=== PATIENT | male | born 1975 | race Caucasian/White ===

== ENCOUNTER 2020-01-01 20:40 | Emergency (ER) | payer BC ==
[2020-01-01 20:44] VITALS: RESP 20; TEMP 97.9
[2020-01-01] MEDS ORDERED: SODIUM CHLORIDE 0.9% 1,000 ML IV STA (21:22)
[2020-01-01] MEDS ORDERED: KETOROLAC 30 MG/ML 1 ML VIAL IVP STA (21:22)
[2020-01-01] MEDS ORDERED: ONDANSETRON 4 MG/2 ML VIAL IVP STA (21:22)
--- NOTE | 2020-01-01 21:24 | ED ---
Abdominal Pain HPI - General Chief Complaint: Abdominal Pain Stated Complaint: right side abd pain Time Seen by Provider: 01/01/20 20:56 Source: patient Mode of arrival: ambulatory Limitations: no limitations - History of Present Illness Initial Comments: Patient is a 44-year-old male with history of kidney stones presenting to the emergency room with a chief complaint of abdominal pain. The pain started about 4 hours prior to arrival. Patient states this one feels somewhat like a previous kidney stone. States pain is located in the right groin region and is constant and sharp in nature. Does report nausea but denies any vomiting or diarrhea. Denies any abdominal bloating denies any constipation and he is able to pass gas. Denies any night sweats fever or chills. Denies previous history of abdominal surgeries. Denies taking any medications alleviate the symptoms. Denies testicular pain or swelling. Denies penile discharge or pain. - Related Data Previous Rx's Medication Instructions Recorded Hydrocodone/Acetaminophen [[place] 1 each PO Q6HR PRN #20 tab 06/05/16 5-325] Ketorolac [Toradol] 10 mg PO Q6HR #20 tab 06/05/16 Ondansetron Odt [Zofran ODT] 4 mg PO Q8HR PRN #20 tab 06/05/16 Tamsulosin HCl [Flomax] 0.4 mg PO DAILY #10 cap 06/05/16 HYDROcodone/APAP 10-325MG [[place] 1 tab PO Q6HR PRN 3 Days #12 tab 01/01/20 10-325] Tamsulosin [Flomax] 0.4 mg PO DAILY #7 cap 01/01/20 Allergies Allergy/AdvReac Type Severity Reaction Status Date / Time Penicillins Allergy Rash/Hives Verified 01/01/20 20:44 Review of Systems ROS Statement: Those systems with pertinent positive or pertinent negative responses have been documented in the HPI. ROS Other: All systems not noted in ROS Statement are negative. Past Medical History Past Medical History: No Reported History Additional Past Medical History / Comment(s): Kidney stones History of Any Multi-Drug Resistant Organisms: None Reported Past Surgical History: No Surgical Hx Reported Past Psychological History: No Psychological Hx Reported Smoking Status: Never smoker Past Alcohol Use History: Occasional Past Drug Use History: None Reported General Exam Limitations: no limitations General appearance: alert, in no apparent distress, obese Head exam: Present: atraumatic, normocephalic, normal inspection Eye exam: Present: normal appearance Pupils: Present: normal accommodation ENT exam: Present: normal exam Neck exam: Present: normal inspection, full ROM Respiratory exam: Present: normal lung sounds bilaterally Cardiovascular Exam: Present: regular rate, normal rhythm, normal heart sounds GI/Abdominal exam: Present: soft, tenderness (Right lower quadrant. Negative McBurney point tenderness. Negative Rovsing, negative obturator, negative psoas.). Absent: distended, guarding, rebound, rigid, bruit, pulsatile mass, hernia exam: Present: normal inspection. Absent: testicular tenderness, scrotal swelling Extremities exam: Present: normal inspection, full ROM Back exam: Present: normal inspection, full ROM. Absent: CVA tenderness (R), CVA tenderness (L) Neurological exam: Present: alert, oriented X3 Psychiatric exam: Present: normal affect, normal mood Skin exam: Present: warm, dry, intact, normal color Course Vital Signs 01/01/20 20:42 Temperature 97.9 F Pulse Rate 71 Respiratory 20 Rate Blood Pressure 165/97 O2 Sat by Pulse 99 Oximetry Medical Decision Making - Medical Decision Making Patient is a 44-year-old male with history of kidney stones presenting to the emergency room with a chief complaint of abdominal pain. Sudden onset of right groin abdominal pain that is sharp in nature and constant. On exam patient has no signs of appendicitis. Patient given IV fluids, analgesia and antiemetics. CBC CMP are unremarkable. UA does show large amounts of blood. Patient has no CVA tenderness so not suspecting any hydronephrosis at this time. Patient given Flomax in the ED and will be discharged with a seven-day course of Flomax. Patient will also be given less than 3 days of [place]. Patient was to follow-up with a urologist. Return parameters thoroughly discussed with patient was understanding and agreeable. Case discussed with physician. - Lab Data Result diagrams: 01/01/20 21:35 01/01/20 21:35 Lab Results 01/01/20 01/01/20 01/01/20 Range/Units 21:35 21:35 21:35 WBC 12.6 H (3.8-10.6) k/uL RBC 5.22 (4.30-5.90) m/uL Hgb 16.1 (13.0-17.5) gm/dL Hct 48.0 (39.0-53.0) % MCV 91.9 (80.0-100.0) fL MCH 30.9 (25.0-35.0) pg MCHC 33.6 (31.0-37.0) g/dL RDW 12.1 (11.5-15.5) % Plt Count 293 (150-450) k/uL Neutrophils % 76 % Lymphocytes % 15 % Monocytes % 5 % Eosinophils % 2 % Basophils % 1 % Neutrophils # 9.6 H (1.3-7.7) k/uL Lymphocytes # 1.8 (1.0-4.8) k/uL Monocytes # 0.6 (0-1.0) k/uL Eosinophils # 0.2 (0-0.7) k/uL Basophils # 0.1 (0-0.2) k/uL Sodium 139 (137-145) mmol/L Potassium 4.3 (3.5-5.1) mmol/L Chloride 101 (98-107) mmol/L Carbon Dioxide 28 (22-30) mmol/L Anion Gap 10 mmol/L BUN 22 H (9-20) mg/dL Creatinine 0.98 (0.66-1.25) mg/dL Est GFR (CKD-EPI)AfAm >90 (>60 ml/min/1.73 sqM) Est GFR (CKD-EPI)NonAf >90 (>60 ml/min/1.73 sqM) Glucose 104 H (74-99) mg/dL Calcium 9.5 (8.4-10.2) mg/dL Total Bilirubin 0.5 (0.2-1.3) mg/dL AST 49 (17-59) U/L ALT 87 H (4-49) U/L Alkaline Phosphatase 84 (38-126) U/L Total Protein 7.6 (6.3-8.2) g/dL Albumin 4.7 (3.5-5.0) g/dL Urine Color Light Red Urine Appearance Cloudy (Clear) Urine pH 5.5 (5.0-8.0) Ur Specific [place] 1.027 (1.001-1.035) Urine Protein 1+ H (Negative) Urine Glucose (UA) Negative (Negative) Urine Ketones Negative (Negative) Urine Blood Large H (Negative) Urine Nitrite Negative (Negative) Urine Bilirubin Negative (Negative) Urine Urobilinogen <2.0 (<2.0) mg/dL Ur Leukocyte Esterase Negative (Negative) Urine RBC >182 H (0-5) /hpf Urine WBC 1 (0-5) /hpf Urine Bacteria Rare H (None) /hpf Urine Mucus Few H (None) /hpf Urine Yeast (Budding) Few H (None) /hpf Disposition Clinical Impression: Abdominal pain, Kidney stones, Hematuria Disposition: HOME SELF-CARE Condition: Stable Instructions (If sedation given, give patient instructions): Kidney Stones (ED) Additional Instructions: He was prescribed medication as directed. Follow-up with urologist. Return to emergency department if symptoms worsen. Prescriptions: Tamsulosin [Flomax] 0.4 mg PO DAILY #7 cap HYDROcodone/APAP 10-325MG [[place] 10-325] 1 tab PO Q6HR PRN 3 Days #12 tab PRN Reason: Pain Is patient prescribed a controlled substance at d/c from ED?: No Referrals: Herbie Cline MD [Primary Care Provider] - 1-2 days Time of Disposition: 23:03
[2020-01-01 22:07] LABS: Basophils # (A) 0.1 k/uL (0-0.2); Basophils % (A) 1 %; Eosinophils # (A) 0.2 k/uL (0-0.7); Eosinophils % (A) 2 %; HGB 16.1 gm/dL (13.0-17.5); Lymphocytes # (A) 1.8 k/uL (1.0-4.8); Lymphocytes % (A) 15 %; MCH 30.9 pg (25.0-35.0); MCHC 33.6 g/dL (31.0-37.0); MCV 91.9 fL (80.0-100.0); Mean Platelet Volume 6.8; Monocytes # (A) 0.6 k/uL (0-1.0); Monocytes % (A) 5 %; Neutrophils # (A) 9.6 k/uL (1.3-7.7); Neutrophils % (A) 76 %; Platelet Count 293 k/uL (150-450); RBC 5.22 m/uL (4.30-5.90); RDW 12.1 % (11.5-15.5); WBC 12.6 k/uL (3.8-10.6)
[2020-01-01 22:12] LABS: ALT 87 U/L (4-49); AST 49 U/L (17-59); African American GFR (CKD) >90 (>60 ml/min/1.73 sqM); Albumin 4.7 g/dL (3.5-5.0); Alkaline Phosphatase 84 U/L (38-126); Anion Gap 10 mmol/L; Blood Urea Nitrogen 22 mg/dL (9-20); Calcium 9.5 mg/dL (8.4-10.2); Carbon Dioxide 28 mmol/L (22-30); Chloride 101 mmol/L (98-107); Glucose 104 mg/dL (74-99); Non-African American GFR(CKD) >90 (>60 ml/min/1.73 sqM); Potassium 4.3 mmol/L (3.5-5.1); Sodium 139 mmol/L (137-145); Total Bilirubin 0.5 mg/dL (0.2-1.3); Total Protein 7.6 g/dL (6.3-8.2)
[2020-01-01 22:19] LABS: Appearance,Urine Cloudy (Clear); Bacteria,Urine Rare /hpf; Bilirubin,Urine Negative (Negative); Blood,Urine Large (Negative); Budding Yeast,Urine Few /hpf; Color,Urine Light Red; Glucose,Urine (UA) Negative (Negative); Ketones,Urine Negative (Negative); Leukocyte Esterase,Urine Negative (Negative); Mucus,Urine Few /hpf; Nitrite,Urine Negative (Negative); PH, Urine 5.5 (5.0-8.0); Protein,Urine 1+ (Negative); RBC,Urine >182 /hpf (0-5); Specific Gravity,Urine 1.027 (1.001-1.035); Urobilinogen,Urine <2.0 mg/dL (<2.0); WBC,Urine 1 /hpf (0-5)
[2020-01-01] MEDS ORDERED: TAMSULOSIN 0.4 MG CAP.ER.24H PO STA (22:38)
[2020-01-01 23:19] VITALS: BP 158/87; PULSE 75
== END 2020-01-01 23:22 | disposition home or self-care (01) ==
LOC: EC 20:40
DX: N20.0 Calculus of kidney (principal); Z88.0 Allergy status to penicillin
CPT/HCPCS: 99284; 96374; 96375; 96361; 36415; 80053; 85025; 81001; J2405; J1885

== ENCOUNTER → 2023-06-30 | Outpatient (CLI) | payer BC ==
--- NOTE | 2023-06-30 12:32 | P.SLEEP ---
History of Present Illness DATE: 06/30/2023 CONSULTATION/NEW PATIENT EVALUATION HISTORY OF PRESENT ILLNESS/SLEEP-WAKE EVALUATION: 47 year old gentleman had been evaluated in the sleep center for obstructive sleep apnea hypopnea syndrome. Patient was diagnosed with severe obstructive sleep apnea hypopnea syndrome in our institution in 2008. Since that time patient is on treatment with CPAP and he continued to use CPAP equipment every night for the whole night. Patient increased his weight on around 71 pounds since previous sleep study in 2008. I checked CPAP unit. Motor life expectancy was exceeded. CPAP pressure is 8 cm of water. CPAP unit does not has options for AutoPap. Usage is 100% of nights and about 70% of nights more than 4 hours, average 5.3 hours per night. Leak is 28 L/m which is slightly high. Apnea-hypopnea index is significantly increased to 20.1. SLEEP SCHEDULE: Usually sleep schedule from 10 PM to 5 AM on weekdays and from 11 PM to 7 AM on weekend. FALLING ASLEEP: Sometimes patient has difficulties with falling asleep, has TV set and bedroom. DURING SLEEP: Patient usually sleeps on the side position, has snoring and wakes up from sleep up to 3 times with 2 episodes of nocturia. No history of hypnogogical hallucinations, sleep paralysis, or cataplexy. DURING THE DAY/WAKE STATE: In the morning patient wake up tired. [place] sleepiness scale is 8. Usually patient doesn't take naps. PAST MEDICAL HISTORY: Hypertension, prediabetes, history of depression the past. PAST SURGICAL HISTORY: [place] tooth removed. MEDICATIONS: Lisinopril 20 mg once a day, metformin 500 mg 2 tablets twice a day. SOCIAL HISTORY: Negative for smoking, alcohol consumption occasional. FAMILY HISTORY: Heart problems, during the sleep. REVIEW OF SYSTEMS: Snoring, multiple awakenings from sleep. No fevers. No double vision. No recent chest pain. No shortness of breath. No abdominal pain. No bleeding episodes. No blood in urine. No seizure episodes. PHYSICAL EXAMINATION: GENERAL: A pleasant patient without any distress. VITAL SIGNS: BP 132/90 , HR 100 , RR 16 , weight 301 pounds, height 5 foot 11 inches, body mass index 41.8 . HEENT: PERRLA, EOMI. Evaluation of oropharynx showed tongue protrudes midline, low position of soft palate Mallampati 4. NECK: Supple. No JVD. Thyroid is not palpable. 20.5 inches in circumference. LUNGS: Clear to percussion and to auscultation. Good air exchange. No wheezing or rhonchi. HEART: S1, S2 regular. No murmurs, gallops or rubs. ABDOMEN: Soft and nontender. Bowel sounds are present. No organomegaly appreciated. EXTREMITIES: No clubbing or cyanosis. HAT PARTS CUTTER MACHINE: Awake, alert, and oriented x3. Cranial nerves 2 to 7 intact. There is no fasciculation or atrophy noted. No focal deficits observed. ASSESSMENT: 1. History of obstructive sleep apnea hypopnea syndrome diagnosed in our institution in 2008 at that time apnea-hypopnea index 31.3. Patient increased weight on around 71 pounds since that time. He continued to use CPAP equipment but reading from CPAP unit showed high apnea hypopnea index 20.1. CPAP unit is old, doesn't have options for AutoPap. Extremely wide neck 20.5 inches, extremely low position of soft palate Mallampati 4. 2. Obesity BMI 41.8. 3. Hypertension. 4. PreDiabetes mellitus. 5 history of depression in the past. PLAN: 1. Home sleep apnea test for evaluation of patient's breathing during sleep at the present time. 2. I increased pressure in CPAP unit to 12 cm of water. 3. Preferable position during sleep on the side. 4. No driving if patient feels any sleepiness. Patient is aware of civil and criminal liability for unsafe driving. 5. Sleep hygiene with regular sleep time for at least 7.5-8 hours. 6. Watching and aggressive losing weight. Thank you very much for referring this patient for consultation. Sincerely, Palmer Pisano MD, PhD, FAASM. Diplomat of [place] [employer], Sleep Medicine Board by [place] [employer] Retail Sales Merchandiser of [facility] [place] Past Medical History Past Medical History: No Reported History Additional Past Medical History / Comment(s): Kidney stones History of Any Multi-Drug Resistant Organisms: None Reported Past Surgical History: No Surgical Hx Reported Past Psychological History: No Psychological Hx Reported Past Alcohol Use History: Occasional Past Drug Use History: None Reported Medications and Allergies Home Medications Medication Instructions Recorded Confirmed Type Hydrocodone/Acetaminophen [[place] 1 each PO Q6HR PRN #20 tab 06/05/16 Rx 5-325] Ketorolac [Toradol] 10 mg PO Q6HR #20 tab 06/05/16 Rx Ondansetron Odt [Zofran ODT] 4 mg PO Q8HR PRN #20 tab 06/05/16 Rx Tamsulosin HCl [Flomax] 0.4 mg PO DAILY #10 cap 06/05/16 Rx HYDROcodone/APAP 10-325MG [[place] 1 tab PO Q6HR PRN 3 Days #12 tab 01/01/20 Rx 10-325] Tamsulosin [Flomax] 0.4 mg PO DAILY #7 cap 01/01/20 Rx Allergies Allergy/AdvReac Type Severity Reaction Status Date / Time Penicillins Allergy Rash/Hives Verified 01/01/20 20:44 Sleep Note - Sleep Note Sleep Note: Temperature: Pulse Rate: Respiratory Rate: Blood Pressure: SpO2: Height: Weight: BMI: Neck Circumference:
== END ==
LOC: 3 N SLEEP 11:37
PROVIDERS: ATTEND Internal Medicine
DX: G47.33 Obstructive sleep apnea (adult) (pediatric) (principal); I10 Essential (primary) hypertension; E66.9 Obesity, unspecified; R73.03 Prediabetes; F32.A Depression, unspecified; Z68.41 Body mass index [BMI] 40.0-44.9, adult; Z99.89 Dependence on other enabling machines and devices; Z88.0 Allergy status to penicillin
CPT/HCPCS: 99202

== ENCOUNTER → 2023-07-23 | Outpatient (CLI) | payer BC ==
--- NOTE | 2023-07-26 17:01 | P.PCN ---
Description of Procedure: CLINICAL: A home sleep apnea test has been done for confirmation of possible obstructive sleep apnea-hypopnea syndrome. DESCRIPTION OF PROCEDURE: RESULTS: Recording time was 8 hours 49 minutes. Evaluation time was 8 hours 39 minutes. Evaluation time is sufficient for making conclusion about results of the test. Raw data of sleep recording has been reviewed and is adequate. Respiratory channel showed 745 apneas and 56 hypopneas. Apnea-hypopnea index was and 90.7 per hour, which included obstructive apnea index 79.4, central apnea index 2.4, mixed apnea index 2.6. Pulse rate in the range between minimum 75, maximum 114, average 88 by computer calculation. Lowest desaturation was 65 %. IMPRESSION: 1. Extremely Severe Obstructive Sleep Apnea Hypopnea Syndrome with severe oxygen distortion. Please see other impressions from consultation. PLAN: 1. The patient should have PAP titration for correction of respiratory abn ormallities during sleep. 2. I will see patient for follow up visit to discuss results of the test, evaluate clinical response on treatment with PAP therapy and make any necessary adjustments related to mask fitting, pressure, and humidification. 3. Watching and aggressive losing weight. 4. Sleep hygiene with regular time in bed for at least 8 hours. 5. No driving if feeling any sleepiness. Thank you very much for allowing me to participate in the management of your patient. Sincerely, Palmer Pisano MD, PhD, FAASM Diplomat of [place] [employer] Sleep Medicine Board of [place] [employer] Medicine Courier Delivery Driver of [facility] [place]
== END ==
LOC: 3 N SLEEP 10:57
PROVIDERS: ATTEND Internal Medicine
DX: G47.33 Obstructive sleep apnea (adult) (pediatric) (principal); Z88.0 Allergy status to penicillin

== ENCOUNTER 2023-09-09 19:32 | Outpatient (CLI) | payer BC | END 2023-09-10 05:50 | disposition home or self-care (01) | LOC: 3 N SLEEP 19:32 | PROVIDERS: ATTEND Internal Medicine | DX: G47.33 Obstructive sleep apnea (adult) (pediatric) (principal); Z88.0 Allergy status to penicillin | CPT/HCPCS: 95811 ==

== ENCOUNTER → 2023-12-13 | Outpatient (CLI) | payer BC ==
--- NOTE | 2023-12-13 16:34 | P.PN ---
Subjective DATE: 12/13/2023 FOLLOW UP VISIT. Patient with obstructive sleep apnea hypopnea syndrome return to sleep center for follow-up visit. Recently patient had sleep study which documented obstructive sleep apnea hypopnea syndrome. Patient received new BiPAP unit and today is first visit after patient started to use that equipment. Patient was able to use BPAP equipment every night for the whole night. The patient does not have significant problems with the mask, PAP pressure and humidification. [place] sleepiness scale is 5. I checked information from BPAP unit. PAP unit pressure maximal inspiratory pressure 21, minimal expiratory pressure 10, pressure-support 3 cm H2O. Usage is 100% and 97 % for more then 4 hours, average 6.8 hours per night. Leak is 14.6 l/m, which is in acceptable range. Apnea Hypopnea Index is 2.0, which is normal. MEDICATIONS:1. Lisinopril 20 mg once a day, 2. metformin 500 mg 2 tablets twice a da During physical exam: GENERAL: A pleasant patient without any distress. VITAL SIGNS: BP 136/87, HR 84, RR 16 , weight 303, temperature 98.2, oxygen saturation at room air 97% . HEENT: PERRLA, EOMI.low position of soft palate, Mallapati 4 . NECK: Supple. No JVD. LUNGS: Clear to percussion and to auscultation. Good air exchange. No wheezing or rhonchi. HEART: S1, S2 regular. ABDOMEN: Soft and nontender. Obese EXTREMITIES: No clubbing or cyanosis. TEACHER AIDE: Awake, alert, and oriented x3. No focal deficit. Impressions: 1. Obstructive sleep apnea-hypopnea syndrome in severe range. Apnea hypopnea index by results of home sleep apnea test is 90.7. Patient demonstrated great compliance with treatment, benefiting from treatment, normal respiration on BiPAP. 2. Obesity. 3. Hypertension. 4. PreDiabetes mellitus. 5. History of depression in the past. Plan: 1. Continue using PAP equipment every night for the whole night. 2. To change air filter at least 1-2 times per month. 3. PAP unit should stay lower then position of the head. 4. Advised patient to remove all remaining water from humidifier canister daily and make it dry after each usage. Refill canister with fresh distilled water before each usage. 5. Sleep hygiene with regular time in bed for at least 8 hours. 6. Precautions related to driving. No driving if feel any sleepiness. 7. I will maintain prescription for PAP supplies including mask, tube, filters. 8. Follow up visit in 6 months or earlier if patient has any problems. 9. Watching and losing weight. Thank you very much for allowing me to participate in the management of your patient. Palmer Pisano MD, PhD, FAASM. Diplomat of [place] [employer], Sleep Medicine Board by [place] Green Building Energy Engineer of [facility] [place]
== END ==
LOC: 3 N SLEEP 16:06
PROVIDERS: ATTEND Internal Medicine
DX: G47.33 Obstructive sleep apnea (adult) (pediatric) (principal); E66.9 Obesity, unspecified; I10 Essential (primary) hypertension; R73.03 Prediabetes; F32.A Depression, unspecified; Z79.899 Other long term (current) drug therapy; Z99.89 Dependence on other enabling machines and devices; Z79.84 Long term (current) use of oral hypoglycemic drugs; Z88.0 Allergy status to penicillin
CPT/HCPCS: 99212

== ENCOUNTER → 2024-07-13 | Outpatient (CLI) | payer BC ==
[2024-07-13 17:16] VITALS: BP 136/76; PULSE 69; RESP 16; TEMP 98.6
--- NOTE | 2024-07-13 17:33 | P.PROGSL ---
Subjective DATE: 07/13/2024 FOLLOW UP VISIT. Patient with obstructive sleep apnea hypopnea syndrome return to sleep center for follow-up visit. Information from previous visit have been reviewed. Patient is using BPAP equipment every night for the whole night, getting PAP supplies in time. The patient does not have significant problems with the mask, PAP unit and humidification. [place] sleepiness scale is 4. I checked information from PAP unit. BPAP unit pressure maximal inspiratory pressure 21, minimal expiratory pressure 10, average pressure 15.8/12.8 cm H2O. Usage is 100% for more then 4 hours, average 7.3 hours per night. Leak is 12 l/m, which is in acceptable range. Apnea Hypopnea Index is 1.5, which is normal. MEDICATIONS have been reviewed, please see below. During physical exam: GENERAL: A pleasant patient without any distress. VITAL SIGNS: Please see below, weight is 293 lbs. HEENT: PERRLA, EOMI.low position of soft palate, Mallapati 4 . NECK: Supple. No JVD. LUNGS: Clear to percussion and to auscultation. Good air exchange. No wheezing or rhonchi. HEART: S1, S2 regular. ABDOMEN: Soft and nontender. Obese EXTREMITIES: No clubbing or cyanosis. HOSPITAL PLAN ADMINISTRATOR: Awake, alert, and oriented x3. No focal deficit. Impressions: 1. Obstructive sleep apnea-hypopnea syndrome. Patient demonstrated great compliance with treatment, benefiting from treatment. 2. Obesity, BMI 40.8, patient lost 10 pounds comparing with previous visit. 3. Hypertension. 4.. Diabetes mellitus. 5. History of depression. Plan: 1. Continue using BPAP equipment every night for the whole night. 2. Sleep hygiene with regular time in bed for at least 7.5-8 hours 3. PAP unit should stay lower then position of the head. 4. Advised patient to remove all remaining water from humidifier canister daily and make it dry after each usage. Refill canister with fresh distilled water before each usage. 5. Watching and losing weight. 6. Precautions related to driving. No driving if feel any sleepiness. 7. I will maintain prescription for PAP supplies including mask, tube, filters. 8. Follow up visit in 6 months or earlier if patient has any problems. Thank you very much for allowing me to participate in the management of your patient. Palmer Psiano MD, PhD, FAASM. Diplomat of [place] [employer] Medicine, Sleep Medicine Board by [place] [employer] Medicine Geophysical Observer of [facility] [place] Objective - Vital Signs Vital Signs: Vital Signs Temp 98.6 F 07/13/24 17:16 Pulse 69 07/13/24 17:16 Resp 16 07/13/24 17:16 BP 136/76 07/13/24 17:16 Pulse Ox 97 07/13/24 17:16 FiO2 Home Medications: Home Medications Medication Instructions Recorded Confirmed Type Hydrocodone/Acetaminophen [[place] 1 each PO Q6HR PRN #20 tab 06/05/16 Rx 5-325] Ketorolac [Toradol] 10 mg PO Q6HR #20 tab 06/05/16 Rx Ondansetron Odt [Zofran ODT] 4 mg PO Q8HR PRN #20 tab 06/05/16 Rx Tamsulosin HCl [Flomax] 0.4 mg PO DAILY #10 cap 06/05/16 Rx HYDROcodone/APAP 10-325MG [[place] 1 tab PO Q6HR PRN 3 Days #12 tab 01/01/20 Rx 10-325] Tamsulosin [Flomax] 0.4 mg PO DAILY #7 cap 01/01/20 Rx
== END ==
LOC: 3 N SLEEP 16:47
PROVIDERS: ATTEND Internal Medicine
CPT/HCPCS: 99212

== ENCOUNTER → 2025-03-21 | Outpatient (CLI) | payer BC ==
[2025-03-21 16:46] VITALS: BP 120/78; PULSE 85; RESP 16; TEMP 98.2
--- NOTE | 2025-03-21 17:00 | P.PROGSL ---
Subjective DATE: 03/21/2025 FOLLOW UP VISIT. Patient with obstructive sleep apnea hypopnea syndrome return to sleep center for follow-up visit. Information from previous visit have been reviewed. Patient is using PAP equipment every night for the whole night, getting PAP supplies in time. The patient does not have significant problems with the mask, PAP unit and humidification. [place] sleepiness scale is 4, which is normal. I checked information from PAP unit. PAP unit pressure normal inspiratory pressure 21, minimal expiratory pressure 10, pressure support 3, average pressure 15.3/12.3 cm H2O. Usage is 100% for more then 4 hours, average 7.4 hours per night. Leak is 13 l/m, which is in acceptable range. Apnea Hypopnea Index is 1.2, which is normal. MEDICATIONS have been reviewed, please see below. During physical exam: GENERAL: A pleasant patient without any distress. VITAL SIGNS: Please see below, weight is 290.8 lbs. HEENT: PERRLA, EOMI.low position of soft palate, Mallapati 4 . NECK: Supple. No JVD. LUNGS: Clear to percussion and to auscultation. Good air exchange. No wheezing or rhonchi. HEART: S1, S2 regular. ABDOMEN: Soft and nontender. Obese EXTREMITIES: No clubbing or cyanosis. FUNERAL CAR CHAUFFEUR: Awake, alert, and oriented x3. No focal deficit. Impressions: 1. Obstructive sleep apnea-hypopnea syndrome. Patient demonstrated great compliance with treatment, benefiting from treatment. 2., BMI 40.4. 3. Hypertension. 4. Diabetes mellitus. 5. History of depression. Plan: 1. Continue using PAP equipment every night for the whole night. 2. Sleep hygiene with regular time in bed for at least 7.5-8 hours 3. PAP unit should stay lower then position of the head. 4. Advised patient to remove all remaining water from humidifier canister daily and make it dry after each usage. Refill canister with fresh distilled water before each usage. 5. Watching and losing weight. 6. Precautions related to driving. No driving if feel any sleepiness. 7. I will maintain prescription for PAP supplies including mask, tube, filters. 8. Follow up visit in 8 months or earlier if patient has any problems. Thank you very much for allowing me to participate in the management of your patient. Palmer Pisano MD, PhD, FAASM. Diplomat of [place] [employer] Sleep Medicine, Sleep Medicine Board by [place] [employer] Medicine Adult Day Care Worker of [facility] [place] Objective - Vital Signs Vital Signs: Vital Signs Temp 98.2 F 03/21/25 16:44 Pulse 85 03/21/25 16:44 Resp 16 03/21/25 16:44 BP 120/78 03/21/25 16:44 Pulse Ox 95 03/21/25 16:44 FiO2 Intake & Output 03/20/25 03/21/25 03/21/25 18:59 06:59 18:59 Weight 131.769 kg Home Medications: Home Medications Medication Instructions Recorded Confirmed Type Hydrocodone/Acetaminophen [[place] 1 each PO Q6HR PRN #20 tab 06/05/16 Rx 5-325] Ketorolac [Toradol] 10 mg PO Q6HR #20 tab 06/05/16 Rx Ondansetron Odt [Zofran ODT] 4 mg PO Q8HR PRN #20 tab 06/05/16 Rx Tamsulosin HCl [Flomax] 0.4 mg PO DAILY #10 cap 06/05/16 Rx HYDROcodone/APAP 10-325MG [[place] 1 tab PO Q6HR PRN 3 Days #12 tab 01/01/20 Rx 10-325] Tamsulosin [Flomax] 0.4 mg PO DAILY #7 cap 01/01/20 Rx Semaglutide [Ozempic] 2 mg SQ WEEKLY 03/21/25 03/21/25 History lisinopriL [Zestril] 20 mg PO DAILY 03/21/25 03/21/25 History metFORMIN HCL 100 mg PO BID 03/21/25 03/21/25 History
== END ==
LOC: 3 N SLEEP 16:04
PROVIDERS: ATTEND Internal Medicine
DX: G47.33 Obstructive sleep apnea (adult) (pediatric) (principal); I10 Essential (primary) hypertension; E11.9 Type 2 diabetes mellitus without complications; F32.A Depression, unspecified; Z88.0 Allergy status to penicillin; Z99.89 Dependence on other enabling machines and devices
CPT/HCPCS: 99212